=== PATIENT | female | born 1965 | race Caucasian/White ===

== ENCOUNTER → 2020-03-29 | Outpatient (CLI) | payer BC ==
--- NOTE | 2020-03-29 16:23 | US ---
EXAMINATION TYPE: US st tissue neck DATE OF EXAM: 03/29/2020 COMPARISON: NONE CLINICAL HISTORY: 54-year-old female R22.0 swelling. TECHNIQUE: Targeted ultrasound examination along the left lateral aspect of the neck at the palpable site. FINDINGS: Patient has palpable at left lateral neck. Operations Lieutenant notes: At the patient's palpable site, there is a nonvascular, hypoechoic oval structure measuring 0.5 x 0.3 x 0.5cm IMPRESSION: 5 x 5 x 3 mm oval hypoechoic structure at the patient's palpable site along the left lateral aspect o f the neck. Suspect a thickened but nonenlarged cervical lymph node, likely reactive/post inflammator y. Clinical follow-up recommended to ensure resolution. If growth is noted, the area should be rescan shady.
== END | disposition home or self-care (01) ==
LOC: RADUSWWP 14:41
PROVIDERS: ATTEND Family Medicine
DX: R22.0 Localized swelling, mass and lump, head (principal); R22.1 Localized swelling, mass and lump, neck
CPT/HCPCS: 76536

== ENCOUNTER → 2020-07-12 | Outpatient (CLI) | payer BC ==
--- NOTE | 2020-07-12 13:52 | US ---
EXAMINATION TYPE: US st tissue neck DATE OF EXAM: 07/12/2020 COMPARISON: NONE CLINICAL HISTORY: 55-year-old female R22.0 SWELLING, MASS HEAD NECK. Follow up on lymph node Operations And Intelligence Assistant notes: Patient here 2 months ago for palpable on left neck. At that time normal appearing lymph node seen. TECHNIQUE: Targeted ultrasound examination along the left lateral aspect of the patient's neck at the site of previous palpable abnormality. FINDINGS: Operations And Intelligence Assistant notes: On today's exam, normal appearing lymph node was reassessed. Measurements today ar e 0.6 x 0.5 x 0.3cm. (Previously 5 x 4 x 3 mm). IMPRESSION: A small, normal-appearing lymph node present along the left lateral neck measuring 5 x 4 mm (versus 6 x 5 mm, previously). If these imaging findings are felt to be discordant with findings on clinical e xam, consider contrast enhanced CT of the neck for further assessment..
== END ==
LOC: RADUSWWP 11:58
PROVIDERS: ATTEND Internal Medicine
DX: R22.0 Localized swelling, mass and lump, head (principal)
CPT/HCPCS: 76536

== ENCOUNTER → 2020-08-24 | Outpatient (CLI) | payer MEDICARE ==
--- NOTE | 2020-08-30 11:00 | MM ---
Reason for exam: screening (asymptomatic). Last mammogram was performed 1 year and 4 months ago. History: Patient is postmenopausal and is nulliparous. Physical Findings: A clinical breast exam by your physician is recommended on an annual basis and results should be correlated with mammographic findings. MG 3D Screening Mammo W/Cad Bilateral CC and MLO view(s) were taken. Prior study comparison: May 08, 2019, mammogram, performed at [facility]. March 09, 2016, mammogram, performed at [facility]. The breast tissue is heterogeneously dense. This may lower the sensitivity of mammography. Finding: There are grouped/clustered calcifications in the upper outer quadrant of the right breast. There is a chronic nodularity bilaterally. ASSESSMENT: Incomplete: need additional imaging evaluation, BI-RAD 0 RECOMMENDATION: Special view mammogram of the right breast. If lesion persists on supplemental views, image directed ultrasound is recommended. [facility] will attempt to contact patient to return for supplemental views and ultrasound if indicated.
== END | disposition home or self-care (01) ==
LOC: RADMAMWWP 09:13
PROVIDERS: ATTEND Internal Medicine
DX: Z12.31 Encounter for screening mammogram for malignant neoplasm of breast (principal); Z78.0 Asymptomatic menopausal state
CPT/HCPCS: 77063; 77067

== ENCOUNTER → 2020-08-31 | Outpatient (CLI) | payer MEDICARE ==
--- NOTE | 2020-08-31 10:51 | MM ---
Reason for exam: additional evaluation requested from abnormal screening. Last mammogram was performed less than 1 month ago. History: Patient is postmenopausal and is nulliparous. Physical Findings: Nurse did not find any significant physical abnormalities on exam. MG 3D Work Up W/Cad RT CC with magnification, ML with magnification, and ML view(s) were taken of the right breast. Prior study comparison: August 24, 2020, bilateral MG 3d screening mammo w/cad. May 08, 2019, mammogram, performed at [facility]. The breast tissue is heterogeneously dense. This may lower the sensitivity of mammography. Finding: There are intermediate concern, suspicious grouped/clustered, fine calcifications in the upper outer quadrant, middle position of the right breast 5cm from the nipple. New finding since May 08, 2019. These results were verbally communicated with the patient and result sheet given to the patient on 08/31/20. ASSESSMENT: Suspicious, BI-RAD 4 RECOMMENDATION: Stereotactic core biopsy of the right breast. Called Dr. Mckenna's office with mammographic findings and has scheduled an appointment for the patient for 09/23/20 at 2:[address] Jay. Biopsy scheduled for 09/24/20 at 8:00. PRELIMINARY REPORT CALLED AND FAXED TO DR. JAY ON 08/31/20.
== END | disposition home or self-care (01) ==
LOC: RADMAMWWP 08:19
PROVIDERS: ATTEND Internal Medicine
DX: R92.1 Mammographic calcification found on diagnostic imaging of breast (principal); Z78.0 Asymptomatic menopausal state
CPT/HCPCS: 77065; G0279; 77061

== ENCOUNTER → 2020-09-23 | Outpatient (CLI) | payer MEDICARE ==
[2020-09-23 14:04] VITALS: BP 112/67; PULSE 71; RESP 18; TEMP 98.5
--- NOTE | 2020-09-23 14:38 | P.GSHP ---
History of Present Illness H&P Date: 09/23/20 Chief Complaint: Microcalcifications of concern right breast Jacqueline is a 55-year-old white female who underwent a routine bilateral mammogram on 420 721. This revealed an area of calcification of concern in the right breast for which additional views were recommended. These were performed on 5421. Indeterminate calcifications in the upper outer quadrant 5 cm from the nipple on the right breast were identified. Stereotactic core biopsy was recommended. She is seen in consultation for these for Alexsandra Fuentes. She does not feel any new lumps masses or nodules in her breast. She is not complaining of any nipple discharge or skin changes. She is not co mplaining of any recent infection or trauma to the breast. She has had a right lateral area of nodularity for many years which has not changed. She gets mammograms on a yearly basis. Caffeine: 2 bottles of pop/day nicotine: 10 cigarettes/day for 44 years hormones: none chocolate: daily Family history: father: colon cancer paternal grandmother: multiple myloma Hormonal history: Menarche:11 G0 menopause: 50 BCP: for cramps for < 1 year Surgical history: lower back times 2 neck tonsil bilateral shoulder surgery Medical History: Fibromyalgia Rheumatoid arthritis depression high cholesterol Social history: Smoke: 10 cigarettes per day Alcohol: Occasional Drugs: Occasional marijuana - Constitutional Constitutional: Denies chills, Denies fever - EENT Comment: glaucoma Eyes: denies blurred vision, denies pain Ears: deny: decreased hearing, tinnitus Ears, nose, mouth and throat: Denies headache, Denies sore throat - Breasts Breasts: bilateral: as per HPI - Cardiovascular Cardiovascular: Denies chest pain, Denies shortness of breath - Respiratory Comment: smoker Respiratory: Denies cough, Denies 7 - Gastrointestinal Gastrointestinal: Denies abdominal pain, Denies diarrhea, Denies nausea, Denies vomiting - Genitourinary (Female) Genitourinary: Denies dysuria, Denies hematuria - Menstruation Menstruation: Reports postmenopausal - Musculoskeletal Comment: Fibromyalgia, rheumatoid arthritis, degenerative disc disease Musculoskeletal: Reports as per HPI - Integumentary Integumentary: Denies pruritus, Denies rash - Neurological Neurological: Reports numbness, Reports weakness - Psychiatric Psychiatric: Reports depression, Denies anxiety - Endocrine Comment: lost 42 pounds intentional in 6 months Endocrine: Reports weight change, Denies fatigue - Hematologic/Lymphatic Comment: none - Allergic/Immunologic Allergic/Immunologic: Reports seasonal allergies Past Medical History History of Any Multi-Drug Resistant Organisms: None Reported Smoking Status: Current every day smoker Medications and Allergies Home Medications Medication Instructions Recorded Confirmed Type Atorvastatin [Lipitor] 10 mg PO HS 09/13/20 09/13/20 History DULoxetine HCL [Cymbalta] 30 mg PO HS 09/13/20 09/13/20 History DULoxetine HCL [Cymbalta] 60 mg PO DAILY 09/13/20 09/13/20 History Gabapentin [Neurontin] 300 mg PO TID 09/13/20 09/13/20 History HYDROcodone/APAP 5-325MG [[place] 1 tab PO BID 09/13/20 09/13/20 History 5-325] Ibuprofen [Motrin] 800 mg PO Q8H 09/13/20 09/13/20 History Methocarbamol [Robaxin-750] 750 mg PO HS 09/13/20 09/13/20 History PARoxetine HCL [Paxil] 20 mg PO DAILY 09/13/20 09/13/20 History QUEtiapine [SEROquel] 50 mg PO HS 09/13/20 09/13/20 History Allergies Allergy/AdvReac Type Severity Reaction Status Date / Time No Known Allergies Allergy Verified 09/23/20 14:00 Surgical - Exam Vital Signs Temp Pulse Resp BP Pulse Ox 98.5 F 71 18 112/67 98 09/23/20 14:01 09/23/20 14:01 09/23/20 14:01 09/23/20 14:01 09/23/20 14:01 BMI 28.8 - General no distress - Eyes normal ocular movement - ENT normal pinna, normal nares - Neck no masses, trachea midline - Respiratory normal respiratory effort, clear to auscultation - Cardiovascular Rhythm: regular Heart Sounds: normal: S1, S2 - Abdomen Abdomen: soft - Integumentary normal turgor; nevus mid abdomen darker than surrounding tissue - Neurologic no disoriented, no combative - Musculoskeletal uses a cane - Psychiatric oriented to time, oriented to person, oriented to place, speech is normal, miladis ry intact Breast Exam: BRA: 38B inspection: Bilateral grade 3 ptosis Palpation: Right breast: Multi-positional exam fibrocystic changes, mild increased nodularity upper outer quadrant region and at 9:00 Right axilla: No adenopathy of concern left breast: Multiple positional exam fibrocystic changes, no dominant masses or nodules of concern Left axilla: No adenopathy of concern Results Mammogram reviewed personally with ; attention to the microcalcifications of concern in the right breast Assessment and Plan Assessment: Impression: Fibromyalgia Rheumatoid arthritis depression high cholesterol Fibrocystic breast changes Abnormal right breast mammogram/microcalcifications of concern upper outer quadrant approximately 5 cm from the nipple recommendation is via a lateral to medial approach Plan: 1. Stereotactic core biopsy of the right breast follow up after results of this Risk and benefits of the procedure discussed with the patient. Risks include but are not limited to bleeding, infection, reaction to the anesthetic. Additionally there is a risk that the area may not be targeted and sample in which case additional samples may be necessary. The patient understands and wishes to proceed. CC: Alexsandra Fuentes
== END ==
LOC: WWCWWP 13:36
PROVIDERS: ATTEND Surgery
DX: N60.11 Diffuse cystic mastopathy of right breast (principal); M79.7 Fibromyalgia; M06.9 Rheumatoid arthritis, unspecified; F32.9 Major depressive disorder, single episode, unspecified; E78.00 Pure hypercholesterolemia, unspecified; F17.210 Nicotine dependence, cigarettes, uncomplicated; Z79.1 Long term (current) use of non-steroidal anti-inflammatories (NSAID); Z79.899 Other long term (current) drug therapy

== ENCOUNTER → 2020-09-24 | Day surgery (SDC) | payer MEDICARE ==
[2020-09-24 07:19] VITALS: BP 105/67; PULSE 78; RESP 16; TEMP 98.6
--- NOTE | 2020-09-24 08:38 | P.PCN ---
Date of Procedure: 09/24/20 Preoperative Diagnosis: Mammographic abnormality right breast/microcalcifications upper outer quadrant Postoperative Diagnosis: Same Procedure(s) Performed: Stereotactic core biopsy right breast Anesthesia: local Surgeon: Arlet Rodriguez Pathology: other (Breast tissue, with microcalcifications of concern in the specimen) Condition: stable Disposition: same day Indications for Procedure: Microcalcifications of concern right breast upper outer quadrant Operative Findings: Specimen radiograph with microcalcifications present Description of Procedure: Jacqueline is a 55-year-old white female who on a mammogram was noted to have into immediate concern suspicious group clustered fine calcifications in the upper outer quadrant of the right breast. It was recommended she undergo stereotactic core biopsy. Risks and benefits of the procedure as well as alternatives were presented to the patient and she wished to proceed. The patient was taken to the stereotactic core biopsy room. She was positioned prone on the lower table. A circular saw operator film was obtained. The area of concern was identified. The breast was prepped using Betadine. The lesion was targeted. A 9-gauge vacuum-assisted core rotating biopsy needle was driven to the correct coordinates after 10 mL of 1% lidocaine without epinephrine was injected into the area. An additional 10 mL with epinephrine was administered throughout the procedure. A lateral to medial approach was utilized. 8 core biopsy specimens were obtained. Radiograph of the specimen revealed the calcifications of concern had been sampled. A secure marilyn top hatchery man was placed. Radiograph revealed the marker was in the correct location. The patient tolerated the procedure in stable condition. It was felt that the area of concern was adequately sampled, as evidenced by microcalcifications in the specimen and the location of the biopsy. The specimen was sent for pathology. The patient will follow-up with Dr. Desai in 1 week.
--- NOTE | 2020-09-29 17:14 | MM ---
EXAMINATION TYPE: MG stereo VAD BX RT DATE OF EXAM: 09/24/2020 COMPARISON: NONE CLINICAL HISTORY: Right breast calcifications TECHNIQUE: Stereotactic guided core biopsy of right breast. FINDINGS: The procedure of stereotactic guided core biopsy was explained to the patient. Benefits, alternatives, and risks were discussed. An informed consent was then obtained. The shortness pathway for biopsy was chosen. Shortest pathway was chosen for right breast biopsy. I performed the localization, then surgeon, Dr. Lloyd Aldridge performed the remainder of the procedure. A vacuum assisted biopsy gun was used to obtain multiple core samples. The patient tolerated the procedure well without any immediate complication. The patient was kept in the radiology department for short stay after the procedure and then discharged home in stable condition. Targeted calcifications are identified in specimen mammogram. Post biopsy mammogram shows the clip to appear in satisfactory position relative to the targeted area of concern on the preprocedure images. IMPRESSION: SUCCESSFUL, UNCOMPLICATED STEREOTACTIC GUIDED CORE BIOPSY OF AREA OF CONCERN IN THE right BREAST, FULL PATHOLOGY RESULTS TO FOLLOW. Pathology Results: Benign RIGHT BREAST, STEREOTACTIC CORE BIOPSY: Fibrocystic changes including cysts with calcifications and fibrosis. Recommendation Follow up mammogram of the right breast in 6 months. EMERALD
== END ==
LOC: RADMAMWWP 07:06
PROVIDERS: ATTEND Surgery
DX: R92.8 Other abnormal and inconclusive findings on diagnostic imaging of breast (principal); N60.11 Diffuse cystic mastopathy of right breast
CPT/HCPCS: 88305; 19081; A4648; J2001

== ENCOUNTER 2020-09-28 11:03 | Emergency (ER) | payer MEDICARE ==
[2020-09-28 12:04] VITALS: RESP 16; TEMP 97.9
[2020-09-28 13:14] LABS: ALT 19 U/L (4-34); AST 25 U/L (14-36); African American GFR (CKD) >90 (>60 ml/min/1.73 sqM); Albumin 4.5 g/dL (3.5-5.0); Alkaline Phosphatase 78 U/L (38-126); Amylase 45 U/L (30-110); Anion Gap 5 mmol/L; Blood Urea Nitrogen 18 mg/dL (7-17); Calcium 9.7 mg/dL (8.4-10.2); Carbon Dioxide 28 mmol/L (22-30); Chloride 104 mmol/L (98-107); Glucose 97 mg/dL (74-99); Lipase 86 U/L (23-300); Non-African American GFR(CKD) 83 (>60 ml/min/1.73 sqM); Potassium 4.7 mmol/L (3.5-5.1); Sodium 137 mmol/L (137-145); Total Bilirubin 0.3 mg/dL (0.2-1.3); Total Protein 6.9 g/dL (6.3-8.2)
[2020-09-28 13:20] LABS: Basophils % (A) 0 %; Eosinophils # (A) 0.4 k/uL (0-0.7); Eosinophils % (A) 5 %; HCT 42.7 % (34.0-46.0); HGB 14.3 gm/dL (11.4-16.0); Lymphocytes # (A) 1.6 k/uL (1.0-4.8); Lymphocytes % (A) 20 %; MCH 30.9 pg (25.0-35.0); MCHC 33.5 g/dL (31.0-37.0); MCV 92.3 fL (80.0-100.0); Mean Platelet Volume 6.8; Monocytes # (A) 0.3 k/uL (0-1.0); Monocytes % (A) 4 %; Neutrophils # (A) 5.6 k/uL (1.3-7.7); Neutrophils % (A) 70 %; Platelet Count 278 k/uL (150-450); RBC 4.63 m/uL (3.80-5.40); RDW 12.9 % (11.5-15.5); WBC 8.1 k/uL (3.8-10.6)
[2020-09-28] MEDS ORDERED: MORPHINE SULFATE 4 MG/ML SYRINGE IVP STA ×2 (13:49→16:43)
[2020-09-28] MEDS ORDERED: SODIUM CHLORIDE 0.9% 1,000 ML IV ONE (13:49)
--- NOTE | 2020-09-28 13:54 | ED ---
Abdominal Pain HPI - General Chief Complaint: Abdominal Pain Stated Complaint: abd pain, low blood pressure Time Seen by Provider: 09/28/20 13:40 Source: patient Mode of arrival: ambulatory Limitations: no limitations - History of Present Illness Initial Comments: This 55 show female who presents emergent department for abdominal pain. She states that it started approximately 3 days ago. She states it started in the middle of her lower abdomen and has since migrated to the right lower quadrant. She's had associated low-grade temperatures as high as 100.3 at home per she's had some nausea with vomiting. She's also had a headache which has been g eneralized. She went to her primary doctor's office this morning who advised her to come emergency department for the suspicion of appendicitis. The patient denies any diarrhea. She does admit to little bit of constipation and harder stools however states that she is having bowel movements. She did recently have a right breast biopsy however is not having any issues there. She denies any cough, shortness of breath, chest pain. No other complaints. - Related Data Home Medications Medication Instructions Recorded Confirmed Atorvastatin [Lipitor] 10 mg PO HS 09/13/20 09/28/20 DULoxetine HCL [Cymbalta] 30 mg PO HS 09/13/20 09/28/20 DULoxetine HCL [Cymbalta] 60 mg PO DAILY 09/13/20 09/28/20 Gabapentin [Neurontin] 300 mg PO TID 09/13/20 09/28/20 HYDROcodone/APAP 5-325MG [[place] 1 tab PO BID 09/13/20 09/28/20 5-325] Ibuprofen [Motrin] 800 mg PO TID 09/13/20 09/28/20 Methocarbamol [Robaxin-750] 750 mg PO HS 09/13/20 09/28/20 PARoxetine HCL [Paxil] 20 mg PO HS 09/13/20 09/28/20 QUEtiapine [SEROquel] 50 mg PO HS 09/13/20 09/28/20 Lidocaine 5% Patch [Lidoderm] 1 patch TRANSDERM DAILY PRN 09/28/20 09/28/20 Loratadine [Claritin] 10 mg PO BID 09/28/20 09/28/20 Allergies Allergy/AdvReac Type Severity Reaction Status Date / Time No Known Allergies Allergy Verified 09/28/20 17:02 Review of Systems ROS Statement: Those systems with pertinent positive or pertinent negative responses have been documented in the HPI. ROS Other: All systems not noted in ROS Statement are negative. Past Medical History Past Medical History: Rheumatoid Arthritis (RA) Additional Past Medical History / Comment(s): fibro djd History of Any Multi-Drug Resistant Organisms: None Reported Past Surgical History: Back Surgery Past Psychological History: No Psychological Hx Reported Smoking Status: Current every day smoker Past Alcohol Use History: Occasional Past Drug Use History: None Reported General Exam - General Exam Comments Initial Comments: Constitutional: Awake alert Appears comfortable Head: Normocephalic atraumatic Eyes: no conjunctival injection No scleral icterus EOMI Neck: No JVD Supple Heart: Regular rate rhythm normal S1-S2 no murmurs Lungs: Clear to auscultation bilaterally No wheezing No rales Abdomen: Soft nondistended there is tenderness over McBurney's point and towards the suprapubic area Extremities: Non edematous DP pulses intact Radial pulses intact Neuro: A&Ox3 No focal neurologic deficits Psych: Appropriate mood and affect Limitations: no limitations Course Vital Signs 09/28/20 12:02 Temperature 97.9 F Pulse Rate 84 Respiratory 16 Rate Blood Pressure 110/79 O2 Sat by Pulse 98 Oximetry Medical Decision Making - Medical Decision Making Is a 55-year-old female who presents emergency department for right lower quadrant abdominal pain. She stated she had fevers at home as well. Her pain did seem to be migratory as well. She was sent in by primary doctor. I examined the patient was tender in the right lower quadrant. She was given morphine and fluids upfront. Blood work was obtained which did not reveal any leukocytosis. Computed tomography scan was obtained as well which did not reveal any signs of appendicitis. There is reported the patient had fecal stasis in the colon. I reexamined the patient and she had completely resolved symptoms. She states that she feels much improved. I had along discussion with her about appendicitis and that early appendicitis could sometimes not show up on imaging. I recommendation for her was to use medication she has at home to assist with bowel movements. And be reevaluated by her primary doctor in the next 24 hours. If she is unable to get in to see her primary doctor she should come to the emergency department. Also if she had any worsening pain, fevers, or any other complaints needs to return probably for reevaluation. The patient stated that she understood and agreed and all questions were answered. - Lab Data Result diagrams: 09/28/20 12:31 09/28/20 12:31 Lab Results 09/28/20 09/28/20 09/28/20 Range/Units 12:31 12:31 12:31 WBC 8.1 (3.8-10.6) k/uL RBC 4.63 (3.80-5.40) m/uL Hgb 14.3 (11.4-16.0) gm/dL Hct 42.7 (34.0-46.0) % MCV 92.3 (80.0-100.0) fL MCH 30.9 (25.0-35.0) pg MCHC 33.5 (31.0-37.0) g/dL RDW 12.9 (11.5-15.5) % Plt Count 278 (150-450) k/uL MPV 6.8 Neutrophils % 70 % Lymphocytes % 20 % Monocytes % 4 % Eosinophils % 5 % Basophils % 0 % Neutrophils # 5.6 (1.3-7.7) k/uL Lymphocytes # 1.6 (1.0-4.8) k/uL Monocytes # 0.3 (0-1.0) k/uL Eosinophils # 0.4 (0-0.7) k/uL Basophils # 0.0 (0-0.2) k/uL Sodium 137 (137-145) mmol/L Potassium 4.7 (3.5-5.1) mmol/L Chloride 104 (98-107) mmol/L Carbon Dioxide 28 (22-30) mmol/L Anion Gap 5 mmol/L BUN 18 H (7-17) mg/dL Creatinine 0.80 (0.52-1.04) mg/dL Est GFR (CKD-EPI)AfAm >90 (>60 ml/min/1.73 sqM) Est GFR (CKD-EPI)NonAf 83 (>60 ml/min/1.73 sqM) Glucose 97 (74-99) mg/dL Calcium 9.7 (8.4-10.2) mg/dL Total Bilirubin 0.3 (0.2-1.3) mg/dL AST 25 (14-36) U/L ALT 19 (4-34) U/L Alkaline Phosphatase 78 (38-126) U/L Total Protein 6.9 (6.3-8.2) g/dL Albumin 4.5 (3.5-5.0) g/dL Amylase 45 (30-110) U/L Lipase 86 (23-300) U/L Urine Color Yellow Urine Appearance Clear (Clear) Urine pH 5.5 (5.0-8.0) Ur Specific Drain 1.018 (1.001-1.035) Urine Protein Negative (Negative) Urine Glucose (UA) Negative (Negative) Urine Ketones Negative (Negative) Urine Blood Negative (Negative) Urine Nitrite Negative (Negative) Urine Bilirubin Negative (Negative) Urine Urobilinogen <2.0 (<2.0) mg/dL Ur Leukocyte Esterase Small H (Negative) Urine RBC <1 (0-5) /hpf Urine WBC 4 (0-5) /hpf Ur Squamous Epith Cells 1 (0-4) /hpf Hyaline Casts 6 H (0-2) /lpf Urine Mucus Rare H (None) /hpf Disposition Clinical Impression: Abdominal pain Disposition: HOME SELF-CARE Condition: Stable Instructions (If sedation given, give patient instructions): Abdominal Pain (ED) Is patient prescribed a controlled substance at d/c from ED?: No Referrals: Heriberto Mckenna MD [Primary Care Provider] - 1-2 days
[2020-09-28 13:59] LABS: Appearance,Urine Clear (Clear); Bilirubin,Urine Negative (Negative); Blood,Urine Negative (Negative); Color,Urine Yellow; Glucose,Urine (UA) Negative (Negative); Hyaline Casts,Urine 6 /lpf (0-2); Ketones,Urine Negative (Negative); Leukocyte Esterase,Urine Small (Negative); Mucus,Urine Rare /hpf; Nitrite,Urine Negative (Negative); PH, Urine 5.5 (5.0-8.0); Protein,Urine Negative (Negative); RBC,Urine <1 /hpf (0-5); Specific Gravity,Urine 1.018 (1.001-1.035); Squamous Epithelial Cell,Urine 1 /hpf (0-4); Urobilinogen,Urine <2.0 mg/dL (<2.0); WBC,Urine 4 /hpf (0-5)
--- NOTE | 2020-09-28 16:11 | CT ---
EXAMINATION TYPE: CT abdomen pelvis w con DATE OF EXAM: 09/28/2020 COMPARISON: None HISTORY: RLQ pain CT DLP: 1171.9 mGycm Automated exposure control for dose reduction was used. TECHNIQUE: Helical acquisition of images from the lung bases through the pelvis have been completed. CONTRAST: Performed without Oral Contrast and with IV Contrast, patient injected with 100 mL of Isovue 300. FINDINGS: LUNG BASES: No significant abnormality is appreciated. AORTA: No significant abnormality is appreciated. LIVER/GB: No significant abnormality is appreciated. PANCREAS: No significant abnormality is seen. SPLEEN: No significant abnormality is seen. ADRENALS: No significant abnormality is seen. KIDNEYS: No significant abnormality is seen. REPRODUCTIVE ORGANS: No significant abnormality is seen BOWEL: No significant abnormality is seen. Pancreas is normal. There is retained fecal debris present within the distribution of the colon. FREE AIR: No Free Air visible. ASCITES: None visible. PELVIC ADENOPATHY: None visualized. RETROPERITONEAL ADENOPATHY: No Retroperitoneal Adenopathy visible. URINARY BLADDER: No significant abnormality is seen. OSSEOUS STRUCTURES: Patient shows posterior fusion changes at L4-5 there is streak artifact, there i s slight spinal curvature, degenerative disc change in the visualized spine. IMPRESSION: CORRELATE FOR FECAL STASIS. Postop changes.
[2020-09-28 17:41] VITALS: BP 121/74; PULSE 68
--- NOTE | 2020-09-29 09:06 | ED ---
Medical Decision Making - Medical Decision Making I called patient on 09/29/2020 @ 0975 to see how she was feeling. Pt stated that she is feeling improved today. States pain has improved. Is going to call to get an appointment with PCP later today. States she will continue to monitor symptoms. Encouraged her to return to ED if she has any worsening or changing symptom. - Lab Data Result diagrams: 09/28/20 12:31 09/28/20 12:31 Lab Results 09/28/20 09/28/20 09/28/20 Range/Units 12:31 12:31 12:31 WBC 8.1 (3.8-10.6) k/uL RBC 4.63 (3.80-5.40) m/uL Hgb 14.3 (11.4-16.0) gm/dL Hct 42.7 (34.0-46.0) % MCV 92.3 (80.0-100.0) fL MCH 30.9 (25.0-35.0) pg MCHC 33.5 (31.0-37.0) g/dL RDW 12.9 (11.5-15.5) % Plt Count 278 (150-450) k/uL MPV 6.8 Neutrophils % 70 % Lymphocytes % 20 % Monocytes % 4 % Eosinophils % 5 % Basophils % 0 % Neutrophils # 5.6 (1.3-7.7) k/uL Lymphocytes # 1.6 (1.0-4.8) k/uL Monocytes # 0.3 (0-1.0) k/uL Eosinophils # 0.4 (0-0.7) k/uL Basophils # 0.0 (0-0.2) k/uL Sodium 137 (137-145) mmol/L Potassium 4.7 (3.5-5.1) mmol/L Chloride 104 (98-107) mmol/L Carbon Dioxide 28 (22-30) mmol/L Anion Gap 5 mmol/L BUN 18 H (7-17) mg/dL Creatinine 0.80 (0.52-1.04) mg/dL Est GFR (CKD-EPI)AfAm >90 (>60 ml/min/1.73 sqM) Est GFR (CKD-EPI)NonAf 83 (>60 ml/min/1.73 sqM) Glucose 97 (74-99) mg/dL Calcium 9.7 (8.4-10.2) mg/dL Total Bilirubin 0.3 (0.2-1.3) mg/dL AST 25 (14-36) U/L ALT 19 (4-34) U/L Alkaline Phosphatase 78 (38-126) U/L Total Protein 6.9 (6.3-8.2) g/dL Albumin 4.5 (3.5-5.0) g/dL Amylase 45 (30-110) U/L Lipase 86 (23-300) U/L Urine Color Yellow Urine Appearance Clear (Clear) Urine pH 5.5 (5.0-8.0) Ur Specific [place] 1.018 (1.001-1.035) Urine Protein Negative (Negative) Urine Glucose (UA) Negative (Negative) Urine Ketones Negative (Negative) Urine Blood Negative (Negative) Urine Nitrite Negative (Negative) Urine Bilirubin Negative (Negative) Urine Urobilinogen <2.0 (<2.0) mg/dL Ur Leukocyte Esterase Small H (Negative) Urine RBC <1 (0-5) /hpf Urine WBC 4 (0-5) /hpf Ur Squamous Epith Cells 1 (0-4) /hpf Hyaline Casts 6 H (0-2) /lpf Urine Mucus Rare H (None) /hpf Disposition Clinical Impression: Abdominal pain Disposition: HOME SELF-CARE Condition: Stable Instructions (If sedation given, give patient instructions): Abdominal Pain (ED) Is patient prescribed a controlled substance at d/c from ED?: No Referrals: Heriberto Mckenna MD [Primary Care Provider] - 1-2 days
== END 2020-09-28 17:41 | disposition home or self-care (01) ==
LOC: EC 11:03
DX: R10.31 Right lower quadrant pain (principal); F17.200 Nicotine dependence, unspecified, uncomplicated; M79.7 Fibromyalgia
CPT/HCPCS: 99284 ×2; 96374 ×2; 96376 ×2; 96361 ×4; 36415; 80053; 82150; 83690; 85025; 81001; 74177; J2270; Q9967

== ENCOUNTER → 2020-10-01 | Outpatient (CLI) | payer MEDICARE ==
[2020-10-01 09:41] VITALS: BP 106/69; PULSE 73; RESP 18; TEMP 98
--- NOTE | 2020-10-01 10:20 | P.PN ---
Subjective Progress Note Date: 10/01/20 Principal diagnosis: stero biopsy 09-24-20 Jacqueline is a 55-year-old white female who is status post stereotactic core biopsy of the right breast and [id number]. Post procedure she did not complain of any pain and was doing well until the following day. The following day she experienced abdominal discomfort, dry heaves, and a low-grade fever. She was seen in the emergency department where there were suspicious of appendicitis. She did experience some hypotension in the emergency room blood pressure of 88/61. She was treated conservatively and is feeling better at this time. The patient does have fibromyalgia and initially she was concerned that she had an exacerbation of her fibromyalgia. Her pathology revealed fibrocystic changes including cyst with calcifications and fibrosis. Objective - Vital Signs Vital signs: Vital Signs Temp 98.0 F 10/01/20 09:39 Pulse 73 10/01/20 09:39 Resp 18 10/01/20 09:39 BP 106/69 10/01/20 09:39 Pulse Ox 98 10/01/20 09:39 Intake & Output 09/30/20 10/01/20 10/01/20 18:59 06:59 18:59 Weight 86.636 kg - Constitutional General appearance: Present: average body habitus - EENT Eyes: Present: EOMI ENT: Present: hearing grossly normal - Neck Neck: Present: normal ROM - Respiratory Respiratory: bilateral: CTA - Cardiovascular Heart sounds: normal: S1, S2 - Gastrointestinal Gastrointestinal Comment(s): no guarding or rebound, mild tender RLQ - Integumentary Integumentary Comment(s): mile echymosis at biopsy site - Musculoskeletal Musculoskeletal Comment(s): uses a cane - Psychiatric Psychiatric: Present: A&O x's 3, appropriate affect, intact judgment & insight Assessment and Plan Assessment: Impression: 1. Patient status post her sterotactic core biopsy right breast pathology benign concordant 2. Abdominal pain patient evaluated in emergency department and ruled out for appendicitis at this time however for pain persists or increases she will go to the emergency room again This is not felt to be related to her breast biopsy Plan: 1. Repeat right breast mammogram in 6 months time with physician examined that time 2. Patient to follow-up with primary care doctor in the ER if she has persistent abdominal pain CC: Dr. Mckenna
== END ==
LOC: WWCWWP 09:34
PROVIDERS: ATTEND Surgery
DX: N60.91 Unspecified benign mammary dysplasia of right breast (principal); R10.9 Unspecified abdominal pain

== ENCOUNTER 2021-02-14 12:41 | Day surgery (SDC) | payer MEDICARE ==
[2021-02-10 15:00] VITALS: BMI 27.8
[~2021-02-14 12:41] MED LIST: LIDOCAINE 1% (10MG/ML) FOR IV START INTRADERMA PRN
[2021-02-14 13:26] VITALS: TEMP 97
[2021-02-14] MEDS: LACTATED RINGERS 1,000 ML IV SCH ×2 (13:26→15:52)
[2021-02-14] MEDS ORDERED: PROPOFOL 10 MG/ML 20 ML VIAL IV ONE (15:54)
[2021-02-14] MEDS ORDERED: LIDOCAINE 1% INJ 10MG/ML (20 ML MDV) ONE (15:54)
--- NOTE | 2021-02-14 15:55 | P.GSHP ---
History of Present Illness H&P Date: 02/14/21 Chief Complaint: GI bleed This is a 55-year-old female who presents today for colonoscopy. She is issues with rectal bleeding. Past Medical History Past Medical History: Fibromyalgia, Hyperlipidemia, Rheumatoid Arthritis (RA) Additional Past Medical History / Comment(s): djd History of Any Multi-Drug Resistant Organisms: None Reported Past Surgical History: Back Surgery, Breast Surgery Additional Past Surgical History / Comment(s): BACK SURGERY X 3. COLONOSCOPY. RT BREAST BX Past Anesthesia/Blood Transfusion Reactions: No Reported Reaction Past Psychological History: No Psychological Hx Reported Smoking Status: Former smoker Past Alcohol Use History: Occasional Additional Past Alcohol Use History / Comment(s): QUIT SMOKING 12/29/20 Past Drug Use History: None Reported - Past Family History Father Family Medical History: Cancer Medications and Allergies Home Medications Medication Instructions Recorded Confirmed Type Atorvastatin [Lipitor] 10 mg PO HS 09/13/20 02/10/21 History DULoxetine HCL [Cymbalta] 60 mg PO BID 09/13/20 02/10/21 History Gabapentin [Neurontin] 300 mg PO TID 09/13/20 02/10/21 History HYDROcodone/APAP 5-325MG [[place] 1 tab PO BID 09/13/20 02/10/21 History 5-325] Ibuprofen [Motrin] 800 mg PO TID 09/13/20 02/10/21 History Methocarbamol [Robaxin-750] 750 mg PO HS 09/13/20 02/10/21 History PARoxetine HCL [Paxil] 20 mg PO HS 09/13/20 02/10/21 History QUEtiapine [SEROquel] 50 mg PO HS 09/13/20 02/10/21 History Lidocaine 5% Patch [Lidoderm] 1 patch TRANSDERM DAILY PRN 09/28/20 02/10/21 History Loratadine [Claritin] 10 mg PO DAILY 09/28/20 02/10/21 History Allergies Allergy/AdvReac Type Severity Reaction Status Date / Time No Known Allergies Allergy Verified 02/10/21 15:04 Surgical - Exam Vital Signs Temp Pulse Resp BP Pulse Ox 97 F L 74 20 130/72 99 02/14/21 13:24 02/14/21 13:24 02/14/21 13:24 02/14/21 13:24 02/14/21 13:24 - General well developed, well nourished, no distress - Eyes PERRL - ENT normal pinna - Neck no masses - Respiratory normal expansion - Cardiovascular Rhythm: regular - Abdomen Abdomen: soft, non tender Assessment and Plan Assessment: GI bleed. We'll perform colonoscopy.
--- NOTE | 2021-02-14 16:17 | P.OP ---
Date of Procedure: 02/14/21 Preoperative Diagnosis: GI bleed Postoperative Diagnosis: Internal and external hemorrhoids Procedure(s) Performed: Colonoscopy Anesthesia: MAC Surgeon: Carlos Antonio Pathology: none sent Condition: stable Disposition: PACU Description of Procedure: The patient's placed on the endoscopy table in the lateral position. She received IV sedation. Digital rectal exam was performed which revealed significant external and internal hemorrhoids. The flexible colonoscope was then placed patient anus passed throughout the entire colon. The ileocecal valve was visualized. Cecum appeared normal. The ascending colon, transverse colon, descending colon and sigmoid colon appeared normal. Scope was brought back the rectum. This appeared normal. Scope was withdrawn for patient. There were extensive internal and external hemorrhoids. Using that her previous rectal bleeding is due to hemorrhoids.
[2021-02-14 16:21] VITALS: RESP 16
[2021-02-14 16:36] VITALS: BP 97/48; PULSE 75
== END 2021-02-14 17:00 | disposition home or self-care (01) ==
LOC: ORWHC2ENDO 12:41
PROVIDERS: ATTEND Surgery
DX: K64.8 Other hemorrhoids (principal); K64.4 Residual hemorrhoidal skin tags; M79.7 Fibromyalgia; E78.5 Hyperlipidemia, unspecified; M06.9 Rheumatoid arthritis, unspecified; Z98.890 Other specified postprocedural states; Z87.891 Personal history of nicotine dependence; Z80.9 Family history of malignant neoplasm, unspecified; Z79.1 Long term (current) use of non-steroidal anti-inflammatories (NSAID); Z79.891 Long term (current) use of opiate analgesic; Z79.899 Other long term (current) drug therapy
CPT/HCPCS: 45378; J2001; J2704

== ENCOUNTER 2021-02-16 09:11 | Day surgery (SDC) | payer MEDICARE ==
[2021-02-10 15:08] VITALS: BMI 27.8
[~2021-02-16 09:11] MED LIST changes: +ACETAMINOPHEN TAB 500 MG TAB PO PRN; +DEXAMETHASONE SOD PHOSPHATE 4 MG/ML 1 ML VIAL IV ONE; +HEPARIN SODIUM,PORCINE/PF 5,000 UNIT/0.5 ML SYRINGE SQ PRN; +LACTATED RINGERS 1,000 ML IV SCH; +ONDANSETRON 4 MG/2 ML VIAL IVP ONE; +Pre Op ABX Message 1 EACH MISC MISCELLANE ONE; +SCOPOLAMINE 1.5MG/72HR PATCH TRANSDERM ONE
[2021-02-16] MEDS ORDERED: LIDOCAINE 1% (10MG/ML) FOR IV START SQ ONE (10:01)
[2021-02-16] MEDS ORDERED: FAMOTIDINE 20 MG/2 ML VIAL IV ONE (10:01)
--- NOTE | 2021-02-16 10:16 | P.GSHP ---
History of Present Illness H&P Date: 02/16/21 Chief Complaint: Internal and external hemorrhoids This is a 55-year-old female who presents today for internal and external hemorrhoidectomy. Patient's had trouble with hemorrhoidal pain bleeding and itching. Past Medical History Past Medical History: Fibromyalgia, Hyperlipidemia, Rheumatoid Arthritis (RA) Additional Past Medical History / Comment(s): djd History of Any Multi-Drug Resistant Organisms: None Reported Past Surgical History: Back Surgery, Breast Surgery Additional Past Surgical History / Comment(s): BACK SURGERY X 3. COLONOSCOPY. RT BREAST BX Past Anesthesia/Blood Transfusion Reactions: No Reported Reaction Past Psychological History: No Psychological Hx Reported Smoking Status: Former smoker Past Alcohol Use History: Occasional Additional Past Alcohol Use History / Comment(s): QUIT SMOKING 12/29/20 Past Drug Use History: None Reported - Past Family History Father Family Medical History: Cancer Medications and Allergies Home Medications Medication Instructions Recorded Confirmed Type Atorvastatin [Lipitor] 10 mg PO HS 09/13/20 02/16/21 History DULoxetine HCL [Cymbalta] 60 mg PO BID 09/13/20 02/16/21 History Gabapentin [Neurontin] 300 mg PO TID 09/13/20 02/16/21 History HYDROcodone/APAP 5-325MG [[place] 1 tab PO BID 09/13/20 02/16/21 History 5-325] Ibuprofen [Motrin] 800 mg PO TID 09/13/20 02/16/21 History Methocarbamol [Robaxin-750] 750 mg PO HS 09/13/20 02/16/21 History PARoxetine HCL [Paxil] 20 mg PO HS 09/13/20 02/16/21 History QUEtiapine [SEROquel] 50 mg PO HS 09/13/20 02/16/21 History Lidocaine 5% Patch [Lidoderm] 1 patch TRANSDERM DAILY PRN 09/28/20 02/16/21 History Loratadine [Claritin] 10 mg PO DAILY 09/28/20 02/16/21 History Omeprazole 20 mg PO DAILY PRN 02/16/21 02/16/21 History Allergies Allergy/AdvReac Type Severity Reaction Status Date / Time No Known Allergies Allergy Verified 02/16/21 09:31 Surgical - Exam Vital Signs Temp Pulse Resp BP Pulse Ox 97.4 F L 67 16 116/68 100 02/16/21 09:37 02/16/21 09:37 02/16/21 09:37 02/16/21 09:37 02/16/21 09:37 - General well developed, well nourished, no distress - Eyes PERRL - ENT normal pinna - Neck no masses - Respiratory normal expansion - Cardiovascular Rhythm: regular - Abdomen Abdomen: soft, non tender - Rectum Significant internal and external hemorrhoids Assessment and Plan Assessment: Internal and external hemorrhoids. We'll perform hemorrhoidectomy.
[2021-02-16] MEDS ORDERED: BUPIVACAINE (PF) 0.5% 30 ML VIAL SQ ONE ×3 (10:28→11:04)
[2021-02-16] MEDS ORDERED: fentaNYL (PF) 50 MCG/ML 2 ML AMP ONE (10:30)
[2021-02-16] MEDS ORDERED: ROCURONIUM 10 MG/ML (5 ML VIAL) IV ONE (10:30)
[2021-02-16] MEDS ORDERED: SUCCINYLCHOLINE CHLORIDE 100 MG/5 ML SYR IV ONE (10:30)
[2021-02-16] MEDS ORDERED: LIDOCAINE 1% INJ 10MG/ML (20 ML MDV) ONE (10:30)
[2021-02-16] MEDS ORDERED: MIDAZOLAM 2 MG/2 ML VIAL ONE (10:30)
[2021-02-16] MEDS ORDERED: PROPOFOL 10 MG/ML 20 ML VIAL IV ONE (10:30)
[2021-02-16] MEDS ORDERED: GELATIN SPONGE,ABSORB (LARGE) 1 EACH SPONGE TOPICAL ONE (10:40)
--- NOTE | 2021-02-16 11:11 | P.OP ---
Date of Procedure: 02/16/21 Preoperative Diagnosis: Internal and external hemorrhoids Postoperative Diagnosis: Internal and external hemorrhoids Procedure(s) Performed: Internal and external hemorrhoidectomy Anesthesia: KAREN Surgeon: Carlos Antonio Estimated Blood Loss (ml): 5 Pathology: other (Internal and external hemorrhoids) Condition: stable Disposition: PACU Description of Procedure: The patient's placed on the operative table in supine position where she received general endotracheal anesthesia. She was then placed in prone jackknife position. Her anus appropriately sterile fashion. The patient a very large hemorrhoids. The anal retractors placed and anus. And then the left lateral hemorrhoidal column was grasped. Allis clamps and removed with the LigaSure device. The right anterior and right posterior hemorrhoid columns were excised in identical fashion. No bleeding was seen. The anus packed with Gelfoam. A perianal block was performed using 1% local Xylocaine. Patient top she will was sent to recovery in stable condition.
[2021-02-16 11:30] VITALS: TEMP 97
[2021-02-16] MEDS: HYDROmorphone 0.5 MG/0.5 ML SYRINGE IVP PRN ×4 (11:32→11:58)
[2021-02-16 12:30] VITALS: BP 116/69; PULSE 61; RESP 18
== END 2021-02-16 13:10 | disposition home or self-care (01) ==
LOC: OR 09:11
PROVIDERS: ATTEND Surgery
DX: K64.8 Other hemorrhoids (principal); K64.4 Residual hemorrhoidal skin tags; E78.5 Hyperlipidemia, unspecified; M06.9 Rheumatoid arthritis, unspecified; M79.7 Fibromyalgia; Z98.890 Other specified postprocedural states; Z87.891 Personal history of nicotine dependence; Z80.9 Family history of malignant neoplasm, unspecified; Z79.1 Long term (current) use of non-steroidal anti-inflammatories (NSAID); Z79.891 Long term (current) use of opiate analgesic; Z79.899 Other long term (current) drug therapy; F41.9 Anxiety disorder, unspecified; F32.9 Major depressive disorder, single episode, unspecified; R53.1 Weakness
CPT/HCPCS: 88304; 46260; J2250; J1100; J0690; J2405; J2001; J3010; J0330; J2704; J1170; J1644

== ENCOUNTER → 2021-03-29 | Outpatient (CLI) | payer MEDICARE ==
--- NOTE | 2021-03-29 09:26 | MM ---
Reason for exam: follow-up at short interval from prior study. Last mammogram was performed 7 months ago. History: Patient is postmenopausal and is nulliparous. Benign MG stereo VAD BX RT of the right breast, September 24, 2020. Physical Findings: Nurse did not find any significant physical abnormalities on exam. MG 3D Diag Mammo W/Cad RT CC and MLO view(s) were taken of the right breast. Prior study comparison: August 31, 2020, right breast MG 3d work up w/cad RT. August 24, 2020, bilateral MG 3d screening mammo w/cad. The breast tissue is heterogeneously dense. This may lower the sensitivity of mammography. Previous mammotome biopsy in the right breast. There is chronic nodularity in the right breast. No significant new findings when compared with previous films. These results were verbally communicated with the patient and result sheet given to the patient on 03/29/21. ASSESSMENT: Benign, BI-RAD 2 RECOMMENDATION: Return to routine screening mammogram schedule for both breasts. Back on schedule for July 2021.
== END | disposition home or self-care (01) ==
LOC: RADMAMWWP 08:53
PROVIDERS: ATTEND Surgery
DX: R92.8 Other abnormal and inconclusive findings on diagnostic imaging of breast (principal)
CPT/HCPCS: 77065; G0279; 77061

== ENCOUNTER → 2022-12-12 | Outpatient (CLI) | payer MEDICARE ==
--- NOTE | 2022-12-12 13:57 | US ---
EXAMINATION TYPE: US thyroid st tissue head/neck DATE OF EXAM: 12/12/2022 COMPARISON: Thyroid ultrasound 07/12/2020, 03/29/2020 CLINICAL INDICATION: Female, 57 years old with history of E07.9 DISORDER OF THYROID,R22.1 LOCALIZED S WELLING; Visibile bulge when patient is standing or sitting at midline/right inferior neck just super ior to clavicle. GLAND SIZE: Right Lobe: 4.0 x 1.6 x 1.3 cm Overall Parenchyma: heterogenous Left Lobe: 3.4 x 1.9 x 1.1 cm Overall Parenchyma: heterogenous Isthmus Thickness: 0.3 cm NODULES RIGHT: # of nodules measured on right: 0 LEFT: # of nodules measured on left: 0 ISTHMUS: # of nodules measured in the isthmus: 0 Bilateral neck scanned, no evidence of lymphadenopathy. Area of patients concern scanned. No prominent masses or lesions identified. IMPRESSION: 1. No discrete thyroid nodule. 2. No ultrasound evidence for lesion at patient's region of concern. Consider further evaluation with CT neck with IV contrast if there is continued clinical concern.
== END | disposition home or self-care (01) ==
LOC: RADUSWWP 12:40
PROVIDERS: ATTEND Registered Nurse
DX: E07.9 Disorder of thyroid, unspecified (principal); R22.1 Localized swelling, mass and lump, neck
CPT/HCPCS: 76536

== ENCOUNTER → 2023-07-12 | Outpatient (CLI) | payer MEDICARE ==
--- NOTE | 2023-07-14 13:44 | MR ---
EXAMINATION TYPE: MR brain wo/w con DATE OF EXAM: 07/12/2023 11:09 AM CLINICAL INDICATION:Female, 58 years old with history of R53.83 FATIGUE R41.3 AMNESIA R41.82 AMS, He adaches, memory, amnesia, fatigue, ams. COMPARISON: None TECHNIQUE: Multi planar, multi sequence imaging was performed through the brain including: T1, T2, In version recovery, susceptibility weighted imaging and gradient echo imaging and Diffusion weighted im aging. The patient was then given intravenous contrast and multi planar, T1 fat-saturation images wer e obtained. IV Contrast: 10.5 cc Gadavist FINDINGS: The price-white junctions, ventricular system, basal cisterns appear unremarkable. Diffusion-weighted imaging shows no evidence of restricted diffusion to suggest acute/subacute infarct. Intracranial ar terial flow voids are maintained. Midline structures show no abnormality. Minimal scattered foci of h igh T2 signal intensity are seen within the periventricular white matter. The susceptibility weighted images do not reveal any evidence for micro-hemorrhage. After administration of gadolinium, no abnor mal enhancement is seen. The bone marrow signal is within normal limits. Paranasal sinuses and mastoid air cells: No significant paranasal sinus disease. Visualized orbits: Orbital contents are intact. IMPRESSION: 1. No evidence of intracranial mass, acute/subacute infarct, or abnormal enhancement. 2. Minimal Nonspecific white matter changes, likely related to small vessel ischemic disease.
== END | disposition home or self-care (01) ==
LOC: RADMRIMAIN 10:34
PROVIDERS: ATTEND Family Medicine
DX: G93.89 Other specified disorders of brain (principal); R53.83 Other fatigue; R51.9 Headache, unspecified
CPT/HCPCS: 70553; A9585